=== PATIENT | male | born 1950 | race African-American/Black ===

== ENCOUNTER 2019-02-01 11:23 | Inpatient (IN) ==
[2019-02-01] MEDS ORDERED: ALUM/MAG/SIMETH/LIDO VISC 1:1 30 ML BOTTLE PO STA (11:55)
[2019-02-01] MEDS ORDERED: PANTOPRAZOLE 40 MG VIAL IV STA ×2 (11:55→14:19)
[2019-02-01] MEDS ORDERED: SODIUM CHLORIDE 0.9% 1,000 ML IV STA (11:55)
[2019-02-01] MEDS ORDERED: ONDANSETRON 4 MG/2 ML VIAL IV STA (11:55)
[2019-02-01 12:59] LABS: Apearance,Urine CLEAR (Clear); Bacteria,Urine Occasional /HPF (Few); Bilirubin,Urine Negative (Negative); Blood, Urine Negative (Negative); Glucose,Urine (UA) >=500 mg/dL (Negative); Hyaline Casts,Urine 12 /LPF (0-3); Ketones,Urine Negative (Negative); Mucus,Urine Many /LPF (Occasional); Nitrite,Urine Negative (Negative); Protein,Urine >=500 MG/DL; RBC,Urine 2 /HPF (0-4); Urine Color Amber (Yellow); Urine Specific Gravity 1.029 (1.001-1.035); WBC,Urine 2 /HPF (0-6)
[2019-02-01 13:00] LABS: Basophils % 0.4 % (0.0-0.8); Eosinophils # 0.1 10*3/uL (0.0-0.87); Eosinophils % 1.2 % (0.00-10.9); Hemoglobin 14.1 GM/DL (14.0-18.0); Immature Granulocytes % 0.4 %; Immature Granulocytes Absolute 0.04 #; Lymphocytes # 2.8 10*3/uL (1.4-4.0); Lymphocytes % 26.8 % (21.2-54.2); Mean Corpuscular Volume 82.1 FL (87-102); Mean Platelet Volume 9.6 FL (9.6-12.0); Monocytes % 6.7 % (1.7-12.7); Neutrophils % 64.5 % (38.7-73.9); Platelet Count 300 T/CUMM (130-400); Red Blood Count 5.36 MC/CUMM (3.8-5.5); Red Cell Distribution Width 14.1 % (9.3-17.3); White Blood Count 10.3 T/CUMM (4-12)
[2019-02-01 13:14] LABS: Albumin 3.8 G/DL (3.4-5.0); Bilirubin,Total 0.8 MG/DL (0.2-1.0); Calcium 8.9 MG/DL (8.5-10.1); Total Protein 7.4 G/DL (6.4-8.3)
[2019-02-01] MEDS ORDERED: POTASSIUM CHLORIDE 20 MEQ TABLET PO STA (14:25)
[2019-02-01] MEDS ORDERED: DEXTROSE 50% 25 GM/50 ML VIAL IV PRN (16:02)
[2019-02-01] MEDS ORDERED: ACETAMINOPHEN 325 MG TABLET PO PRN (16:02)
[2019-02-01] MEDS ORDERED: GLUCAGON 1 MG VIAL IM PRN (16:02)
[2019-02-01] MEDS ORDERED: ONDANSETRON 4 MG/2 ML VIAL IV PRN (16:02)
[2019-02-01] MEDS ORDERED: BISACODYL 10 MG SUPP RECTAL ONE (16:19)
[2019-02-01] MEDS ORDERED: SODIUM PHOSPHATE ENEMA 133 ML BOTTLE RECTAL PRN (16:22)
[2019-02-01] MEDS: SODIUM CHLORIDE 0.9% 1,000 ML IV SCH (16:33)
[2019-02-01] MEDS: INSULIN LISPRO 100 UNIT/ML SUBCUT SCH ×2 (16:39→20:48)
[2019-02-01] MEDS: POTASSIUM CHLORIDE 20 MEQ TABLET PO SCH ×2 (17:17→20:47)
[2019-02-01] MEDS: metFORMIN 500 MG TABLET PO SCH (17:17)
[2019-02-01] MEDS: DOCUSATE SODIUM 100 MG CAPSULE PO SCH (20:47)
[2019-02-01] MEDS: INSULIN GLARGINE 100 UNIT/ML SUBCUT SCH (20:48)
[2019-02-02] MEDS: SODIUM CHLORIDE 0.9% 1,000 ML IV SCH ×4 (00:28→23:45)
[2019-02-02 07:26] LABS: Calcium 8.1 MG/DL (8.5-10.1); Osmolality,Calculated 278.1 MOS/KG (273-304); Thyroid Stimulating Hormone 0.379 uIU/ml (0.358-3.74)
[2019-02-02] MEDS: INSULIN LISPRO 100 UNIT/ML SUBCUT SCH ×5 (08:44→22:14)
[2019-02-02] MEDS: metFORMIN 500 MG TABLET PO SCH ×2 (08:45→16:32)
[2019-02-02] MEDS: PANTOPRAZOLE 40 MG TABLET PO SCH (08:45)
[2019-02-02] MEDS: ASPIRIN EC 81 MG TABLET PO SCH (08:46)
[2019-02-02] MEDS: PYRIDOXINE 100 MG TABLET PO SCH (08:46)
[2019-02-02] MEDS: amLODIPine 5 MG TABLET PO SCH (08:46)
[2019-02-02] MEDS: POTASSIUM CHLORIDE 20 MEQ TABLET PO SCH ×4 (08:47→22:07)
[2019-02-02] MEDS: DOCUSATE SODIUM 100 MG CAPSULE PO SCH ×2 (08:47→22:08)
[2019-02-02] MEDS ORDERED: ROSUVASTATIN 10 MG TABLET PO SCH (21:00)
[2019-02-02] MEDS ORDERED: traMADol 50 MG TABLET PO PRN (21:06)
[2019-02-02] MEDS: INSULIN GLARGINE 100 UNIT/ML SUBCUT SCH (22:06)
[2019-02-02] MEDS: METOPROLOL TARTRATE 25 MG TABLET PO SCH (22:07)
[2019-02-02] MEDS ORDERED: LIDOCAINE 5% PATCH TRANSDERM SCH (23:00)
[2019-02-03 03:59] LABS: Risk Ratio 2.08; VLDL CHOLESTEROL 11.6 MG/DL
[2019-02-03] MEDS: INSULIN LISPRO 100 UNIT/ML SUBCUT SCH ×3 (07:51→17:30)
[2019-02-03] MEDS: POTASSIUM CHLORIDE 20 MEQ TABLET PO SCH ×3 (09:12→18:02)
[2019-02-03] MEDS: DOCUSATE SODIUM 100 MG CAPSULE PO SCH (09:12)
[2019-02-03] MEDS: METOPROLOL TARTRATE 25 MG TABLET PO SCH (09:12)
[2019-02-03] MEDS: PYRIDOXINE 100 MG TABLET PO SCH (09:12)
[2019-02-03] MEDS: ASPIRIN EC 81 MG TABLET PO SCH (09:12)
[2019-02-03] MEDS: metFORMIN 500 MG TABLET PO SCH (09:13)
[2019-02-03] MEDS: PANTOPRAZOLE 40 MG TABLET PO SCH (09:13)
[2019-02-03] MEDS: amLODIPine 5 MG TABLET PO SCH (09:13)
[2019-02-03] MEDS ORDERED: INSULIN GLARGINE 100 UNIT/ML SUBCUT SCH (13:50)
[2019-02-03] MEDS ORDERED: amLODIPine 5 MG TABLET PO SCH (13:51)
[2019-02-03 15:50] VITALS: BP 153/78
[2019-02-03] MEDS ORDERED: metFORMIN 500 MG TABLET PO SCH (17:00)
[2019-02-03] MEDS ORDERED: sitaGLIPtin 25 MG TABLET PO SCH (21:00)
== END 2019-02-03 18:31 | disposition home health service (06) | DRG 201 ==
LOC: EDUNIT# → EDBD → N.EDINP 11:23 → N.ED 11:23 → N.TELES 14:58
PROVIDERS: ADMIT Family Medicine; ATTEND Family Medicine

== ENCOUNTER 2020-07-23 10:09 | Inpatient (IN) ==
[2020-07-23] MEDS ORDERED: SODIUM CHLORIDE 0.9% 1,000 ML IV STA (10:31)
[2020-07-23 11:03] LABS: Amorphous Crystals,Urine Occasional /HPF (Few); Bacteria,Urine Occasional /HPF (Few); Bilirubin,Urine Negative (Negative); Blood, Urine Large mg/dL (Negative); Glucose,Urine (UA) >=500 mg/dL (Negative); Hyaline Casts,Urine 19 /LPF (0-3); Ketones,Urine 20 mg/dL (Negative); Mucus,Urine Few /LPF (Occasional); Nitrite,Urine Negative (Negative); Protein,Urine 100 MG/DL; RBC,Urine 39 /HPF (0-4); Urine Appearance CLOUDY (Clear); Urine Color Yellow (Yellow); Urine Specific Gravity 1.018 (1.001-1.035); Urine Urobilinogen < 2.0 EU/DL (0.2-1.0); WBC,Urine 4 /HPF (0-6)
[2020-07-23 11:05] LABS: Basophils # 0.1 10*3/uL (0.0-0.2); Basophils % 0.3 % (0.0-0.8); Hematocrit 38.7 VOL% (42.0-52.0); Hemoglobin 12.2 GM/DL (14.0-18.0); Immature Granulocytes % 4.8 %; Immature Granulocytes Absolute 1.15 #; Lymphocytes # 2.3 10*3/uL (1.4-4.0); Lymphocytes % 9.7 % (21.2-54.2); Mean Corpuscular HGB Conc 31.5 GM/DL (32-36); Mean Corpuscular Volume 85.6 FL (87-102); Mean Platelet Volume 10.3 FL (9.6-12.0); Monocytes % 7.7 % (1.7-12.7); Neutrophils % 77.5 % (38.7-73.9); Platelet Count 297 T/CUMM (130-400); Red Blood Count 4.52 MC/CUMM (3.8-5.5); Red Cell Distribution Width 14.8 % (9.3-17.3); White Blood Count 23.7 T/CUMM (4-12)
[2020-07-23 11:25] LABS: INR 1.1; PT Patient Result 11.4 SECS (9.8-11.9)
[2020-07-23 11:27] LABS: Albumin 3.3 G/DL (3.4-5.0); Bilirubin,Total 0.4 MG/DL (0.2-1.0); Calcium 8.9 MG/DL (8.5-10.1); Osmolality,Calculated 331.7 MOS/KG (273-304); Total Protein 5.8 G/DL (6.4-8.3)
[2020-07-23 11:46] LABS: Band Neutrophils 1 % (0-10); Hypochromasia 1+; Lymphocytes 10 % (20-55); Microcytosis Slight; Segmented Neutrophils 85 % (50-85); Total Cells Counted 100
[2020-07-23 11:47] LABS: Acanthocytes Few; Ovalocytes Slight; Platelet Estimate Normal
[2020-07-23] MEDS ORDERED: INSULIN REGULAR 100 UNIT/ML IV STA (12:02)
[2020-07-23] MEDS ORDERED: MAGNESIUM SULF RIDER 4 GM in PREMIX 1 EACH IV PRN (13:47)
[2020-07-23] MEDS ORDERED: DEXTROSE 50% 25 GM/50 ML VIAL IV PRN ×2 (13:47)
[2020-07-23] MEDS ORDERED: MAGNESIUM SULF RIDER 2 GM in PREMIX 1 EACH IV PRN (13:47)
[2020-07-23] MEDS ORDERED: SODIUM PHOSPHATE INJ 12.5 MMOL in SODIUM CHLORIDE 0.9% 250 ML IV PRN (13:47)
[2020-07-23] MEDS ORDERED: SODIUM BICARB INJ 100 MEQ in STERILE WATER INJ 400 ML IV PRN (13:47)
[2020-07-23] MEDS ORDERED: SODIUM CHLORIDE 0.9% 1,000 ML IV ONE (13:47)
[2020-07-23] MEDS ORDERED: NICOTINE 14 MG/24 HR PATCH TRANSDERM PRN (13:51)
[2020-07-23] MEDS ORDERED: INSULIN REGULAR DRIP 100 ML IV SCH (14:00)
[2020-07-23] MEDS ORDERED: ENOXAPARIN 30 MG/0.3 ML SYRINGE SUBCUT SCH (14:00)
[2020-07-23] MEDS: SODIUM CHLORIDE 0.9% 1,000 ML IV SCH ×5 (14:55→20:53)
[2020-07-23 15:40] LABS: ABG Base Excess -18.1 MMOL/L (-2.5-2.5); ABG HCO3 11.3 MMOL/L (20-26); ABG PCO2 22.4 MM HG (35-48); Allen Test Positive; Pt O2 Delivery Device Room Air
[2020-07-23 15:42] LABS: ABG PH 7.204 (7.35-7.45)
[2020-07-23 15:43] LABS: Calcium 9.2 MG/DL (8.5-10.1); Osmolality,Calculated 327.3 MOS/KG (273-304)
[2020-07-23 18:13] LABS: Osmolality,Calculated 322.7 MOS/KG (273-304)
[2020-07-23] MEDS: METOPROLOL TARTRATE 25 MG TABLET PO SCH (20:25)
[2020-07-23 22:47] LABS: Calcium 8.6 MG/DL (8.5-10.1); Osmolality,Calculated 315.3 MOS/KG (273-304)
[2020-07-24] MEDS: SODIUM CHLORIDE 0.9% 1,000 ML IV SCH ×2 (01:09→09:06)
[2020-07-24 02:30] LABS: Basophils % 0.2 % (0.0-0.8); Hemoglobin 12.8 GM/DL (14.0-18.0); Immature Granulocytes Absolute 0.18 #; Lymphocytes # 1.1 10*3/uL (1.4-4.0); Lymphocytes % 6.1 % (21.2-54.2); Mean Corpuscular HGB Conc 33.7 GM/DL (32-36); Mean Corpuscular Volume 79.5 FL (87-102); Mean Platelet Volume 9.8 FL (9.6-12.0); Monocytes % 2.2 % (1.7-12.7); Neutrophils % 90.5 % (38.7-73.9); Platelet Count 264 T/CUMM (130-400); Red Blood Count 4.78 MC/CUMM (3.8-5.5); Red Cell Distribution Width 14.8 % (9.3-17.3); White Blood Count 18.8 T/CUMM (4-12)
[2020-07-24 02:44] LABS: Risk Ratio 2.66; VLDL CHOLESTEROL 10.4 MG/DL
[2020-07-24 02:52] LABS: Calcium 8.5 MG/DL (8.5-10.1)
[2020-07-24] MEDS ORDERED: SODIUM CHLOR 0.45% KCL 20 MEQ 20 MEQ/1,000 ML BAG IV SCH (03:00)
[2020-07-24] MEDS: POTASSIUM CHLORIDE RIDER 10 MEQ in PREMIX 1 EACH IV PRN ×4 (03:05→08:52)
[2020-07-24] MEDS: DEXT 5% NACL 0.45% KCL 20 MEQ 20 MEQ/1,000 ML BAG IV SCH ×2 (03:16→09:03)
[2020-07-24 06:35] LABS: Calcium 8.4 MG/DL (8.5-10.1); Osmolality,Calculated 305.1 MOS/KG (273-304)
[2020-07-24] MEDS ORDERED: SODIUM CHLORIDE 0.45% 1,000 ML IV SCH (06:47)
[2020-07-24] MEDS ORDERED: DEXTROSE 50% 25 GM/50 ML VIAL IV PRN ×2 (08:44→08:46)
[2020-07-24] MEDS ORDERED: GLUCAGON 1 MG VIAL IM PRN ×2 (08:44→08:46)
[2020-07-24] MEDS: ASPIRIN EC 81 MG TABLET PO SCH (08:51)
[2020-07-24] MEDS: METOPROLOL TARTRATE 25 MG TABLET PO SCH ×2 (08:51→20:59)
[2020-07-24] MEDS: INSULIN GLARGINE 100 UNIT/ML SUBCUT SCH (09:34)
[2020-07-24] MEDS: INSULIN LISPRO 100 UNIT/ML SUBCUT SCH ×3 (12:00→21:03)
[2020-07-24] MEDS: ENOXAPARIN 40 MG/0.4 ML SYRINGE SUBCUT SCH (13:34)
[2020-07-25] MEDS: SODIUM CHLORIDE 0.9% 1,000 ML IV SCH ×4 (03:34→21:33)
[2020-07-25 04:28] LABS: Basophils % 0.2 % (0.0-0.8); Eosinophils % 0.1 % (0.00-10.9); Hemoglobin 12.3 GM/DL (14.0-18.0); Immature Granulocytes % 0.9 %; Immature Granulocytes Absolute 0.15 #; Lymphocytes # 1.5 10*3/uL (1.4-4.0); Lymphocytes % 9.7 % (21.2-54.2); Mean Corpuscular HGB Conc 33.2 GM/DL (32-36); Mean Corpuscular Volume 79.9 FL (87-102); Mean Platelet Volume 10.6 FL (9.6-12.0); Monocytes % 6.8 % (1.7-12.7); Neutrophils % 82.3 % (38.7-73.9); Platelet Count 254 T/CUMM (130-400); Red Blood Count 4.63 MC/CUMM (3.8-5.5); Red Cell Distribution Width 15.4 % (9.3-17.3)
[2020-07-25 04:54] LABS: Calcium 8.6 MG/DL (8.5-10.1); Osmolality,Calculated 292.6 MOS/KG (273-304)
[2020-07-25 04:55] LABS: Eosinophils 1 % (0-10); Lymphocytes 9 % (20-55); Platelet Estimate Adequate; Segmented Neutrophils 87 % (50-85); Total Cells Counted 100
[2020-07-25 04:56] LABS: Hypochromasia Slight; Microcytosis Slight; Ovalocytes Slight
[2020-07-25] MEDS: ASPIRIN EC 81 MG TABLET PO SCH (08:26)
[2020-07-25] MEDS: METOPROLOL TARTRATE 25 MG TABLET PO SCH ×2 (08:26→21:28)
[2020-07-25] MEDS: INSULIN LISPRO 100 UNIT/ML SUBCUT SCH ×4 (08:27→21:27)
[2020-07-25] MEDS: INSULIN GLARGINE 100 UNIT/ML SUBCUT SCH (08:27)
[2020-07-25] MEDS: ENOXAPARIN 40 MG/0.4 ML SYRINGE SUBCUT SCH (15:04)
[2020-07-25] MEDS ORDERED: hydrALAZINE 20 MG/1 ML VIAL IV PRN (16:35)
[2020-07-26 05:27] LABS: Basophils % 0.1 % (0.0-0.8); Eosinophils % 0.2 % (0.00-10.9); Hematocrit 37.8 VOL% (42.0-52.0); Hemoglobin 12.8 GM/DL (14.0-18.0); Immature Granulocytes % 0.4 %; Immature Granulocytes Absolute 0.04 #; Lymphocytes # 2.1 10*3/uL (1.4-4.0); Lymphocytes % 19.3 % (21.2-54.2); Mean Corpuscular HGB Conc 33.9 GM/DL (32-36); Mean Corpuscular Volume 78.4 FL (87-102); Mean Platelet Volume 9.1 FL (9.6-12.0); Monocytes % 6.6 % (1.7-12.7); Neutrophils % 73.4 % (38.7-73.9); Platelet Count 210 T/CUMM (130-400); Red Blood Count 4.82 MC/CUMM (3.8-5.5)
[2020-07-26] MEDS: METOPROLOL TARTRATE 25 MG TABLET PO SCH ×2 (09:21→20:20)
[2020-07-26] MEDS: ASPIRIN EC 81 MG TABLET PO SCH (09:21)
[2020-07-26] MEDS: INSULIN GLARGINE 100 UNIT/ML SUBCUT SCH (09:21)
[2020-07-26] MEDS: POTASSIUM CHLORIDE RIDER 10 MEQ in PREMIX 1 EACH IV PRN ×2 (09:24→11:48)
[2020-07-26] MEDS: INSULIN LISPRO 100 UNIT/ML SUBCUT SCH ×4 (10:25→20:20)
[2020-07-26] MEDS ORDERED: POTASSIUM CHLORIDE 20 MEQ TABLET PO ONE (11:00)
[2020-07-26] MEDS: NYSTATIN 500,000 UNIT/5 ML UDCUP SWISH/SWAL SCH ×3 (13:09→20:20)
[2020-07-26] MEDS: ENOXAPARIN 40 MG/0.4 ML SYRINGE SUBCUT SCH (15:31)
[2020-07-26] MEDS: SODIUM CHLORIDE 0.9% 1,000 ML IV SCH ×2 (15:55→22:31)
[2020-07-26] MEDS: ROSUVASTATIN 20 MG TABLET PO SCH (20:20)
[2020-07-26] MEDS ORDERED: ONDANSETRON 4 MG/2 ML VIAL IV PRN (22:24)
[2020-07-27 05:54] LABS: Basophils % 0.2 % (0.0-0.8); Eosinophils # 0.1 10*3/uL (0.0-0.87); Eosinophils % 0.7 % (0.00-10.9); Hematocrit 40.6 VOL% (42.0-52.0); Hemoglobin 13.6 GM/DL (14.0-18.0); Immature Granulocytes % 0.2 %; Immature Granulocytes Absolute 0.02 #; Lymphocytes # 2.7 10*3/uL (1.4-4.0); Lymphocytes % 29.5 % (21.2-54.2); Mean Corpuscular HGB Conc 33.5 GM/DL (32-36); Mean Corpuscular Volume 79.6 FL (87-102); Mean Platelet Volume 9.9 FL (9.6-12.0); Monocytes % 6.9 % (1.7-12.7); Neutrophils % 62.5 % (38.7-73.9); Platelet Count 254 T/CUMM (130-400); Red Cell Distribution Width 14.6 % (9.3-17.3)
[2020-07-27 06:08] LABS: Calcium 8.2 MG/DL (8.5-10.1); Osmolality,Calculated 278.1 MOS/KG (273-304)
[2020-07-27] MEDS: POTASSIUM CHLORIDE RIDER 10 MEQ in PREMIX 1 EACH IV PRN ×5 (06:44→17:48)
[2020-07-27] MEDS: ASPIRIN EC 81 MG TABLET PO SCH (08:45)
[2020-07-27] MEDS: METOPROLOL TARTRATE 25 MG TABLET PO SCH ×2 (08:46→20:39)
[2020-07-27] MEDS: INSULIN LISPRO 100 UNIT/ML SUBCUT SCH ×4 (08:46→20:40)
[2020-07-27] MEDS: NYSTATIN 500,000 UNIT/5 ML UDCUP SWISH/SWAL SCH ×4 (08:46→20:39)
[2020-07-27] MEDS: INSULIN GLARGINE 100 UNIT/ML SUBCUT SCH (08:47)
[2020-07-27] MEDS: ENOXAPARIN 40 MG/0.4 ML SYRINGE SUBCUT SCH (13:04)
[2020-07-27] MEDS ORDERED: TUBERCULIN SKIN TEST 0.1 ML SYRINGE INTRADERM ONE (15:22)
[2020-07-27] MEDS: SODIUM CHLORIDE 0.9% 1,000 ML IV SCH (17:47)
[2020-07-27] MEDS: ROSUVASTATIN 20 MG TABLET PO SCH (20:39)
[2020-07-27] MEDS ORDERED: POTASSIUM CHLORIDE RIDER 20 MEQ in PREMIX 1 EACH IV PRN (22:03)
[2020-07-28 06:05] LABS: Basophils % 0.4 % (0.0-0.8); Eosinophils # 0.1 10*3/uL (0.0-0.87); Eosinophils % 1.3 % (0.00-10.9); Hematocrit 37.8 VOL% (42.0-52.0); Hemoglobin 12.5 GM/DL (14.0-18.0); Immature Granulocytes % 0.2 %; Immature Granulocytes Absolute 0.02 #; Lymphocytes # 3.4 10*3/uL (1.4-4.0); Lymphocytes % 40.4 % (21.2-54.2); Mean Corpuscular HGB Conc 33.1 GM/DL (32-36); Mean Corpuscular Volume 80.4 FL (87-102); Mean Platelet Volume 9.7 FL (9.6-12.0); Neutrophils % 50.7 % (38.7-73.9); Platelet Count 226 T/CUMM (130-400); Red Cell Distribution Width 14.3 % (9.3-17.3); White Blood Count 8.4 T/CUMM (4-12)
[2020-07-28 06:19] LABS: Osmolality,Calculated 275.5 MOS/KG (273-304)
[2020-07-28] MEDS: INSULIN LISPRO 100 UNIT/ML SUBCUT SCH ×4 (08:03→20:54)
[2020-07-28 08:49] LABS: Band Neutrophils 1 % (0-10); Eosinophils 2 % (0-10); Lymphocytes 35 % (20-55); Metamyelocytes 1 %; Platelet Estimate Normal; Segmented Neutrophils 54 % (50-85); Total Cells Counted 100
[2020-07-28 08:50] LABS: Hypochromasia 2+
[2020-07-28] MEDS: NYSTATIN 500,000 UNIT/5 ML UDCUP SWISH/SWAL SCH ×4 (09:17→20:54)
[2020-07-28] MEDS: INSULIN GLARGINE 100 UNIT/ML SUBCUT SCH (09:17)
[2020-07-28] MEDS: ASPIRIN EC 81 MG TABLET PO SCH (09:17)
[2020-07-28] MEDS: METOPROLOL TARTRATE 25 MG TABLET PO SCH ×2 (09:17→20:55)
[2020-07-28] MEDS: SODIUM CHLORIDE 0.9% 1,000 ML IV SCH (13:56)
[2020-07-28] MEDS: ENOXAPARIN 40 MG/0.4 ML SYRINGE SUBCUT SCH (13:56)
[2020-07-28] MEDS ORDERED: ALUMINUM/MAGNES/SIMETH MAX STR 30 ML UDCUP PO PRN (14:09)
[2020-07-28] MEDS: BISACODYL 5 MG TABLET PO PRN (14:18)
[2020-07-28] MEDS: traMADol 50 MG TABLET PO PRN (20:53)
[2020-07-28] MEDS: ROSUVASTATIN 20 MG TABLET PO SCH (20:55)
[2020-07-29 06:35] LABS: Basophils % 0.4 % (0.0-0.8); Eosinophils # 0.1 10*3/uL (0.0-0.87); Eosinophils % 1.2 % (0.00-10.9); Hematocrit 35.5 VOL% (42.0-52.0); Hemoglobin 11.7 GM/DL (14.0-18.0); Immature Granulocytes % 0.4 %; Immature Granulocytes Absolute 0.03 #; Lymphocytes # 2.8 10*3/uL (1.4-4.0); Lymphocytes % 42.3 % (21.2-54.2); Mean Corpuscular Volume 81.4 FL (87-102); Mean Platelet Volume 10.6 FL (9.6-12.0); Monocytes % 7.9 % (1.7-12.7); Neutrophils % 47.8 % (38.7-73.9); Platelet Count 257 T/CUMM (130-400); Red Blood Count 4.36 MC/CUMM (3.8-5.5); Red Cell Distribution Width 14.2 % (9.3-17.3); White Blood Count 6.7 T/CUMM (4-12)
[2020-07-29 06:48] LABS: Calcium 7.8 MG/DL (8.5-10.1); Osmolality,Calculated 277.3 MOS/KG (273-304)
[2020-07-29 06:59] LABS: Anisocytosis 2+; Band Neutrophils 2 % (0-10); Lymphocytes 42 % (20-55); Platelet Estimate Normal; Segmented Neutrophils 50 % (50-85); Total Cells Counted 100
[2020-07-29 07:03] LABS: Reactive Lymphocytes Few
[2020-07-29] MEDS: INSULIN LISPRO 100 UNIT/ML SUBCUT SCH ×4 (08:51→20:43)
[2020-07-29] MEDS: METOPROLOL TARTRATE 25 MG TABLET PO SCH ×2 (09:27→20:44)
[2020-07-29] MEDS: NYSTATIN 500,000 UNIT/5 ML UDCUP SWISH/SWAL SCH ×4 (09:27→20:44)
[2020-07-29] MEDS: ASPIRIN EC 81 MG TABLET PO SCH (09:27)
[2020-07-29] MEDS: INSULIN GLARGINE 100 UNIT/ML SUBCUT SCH (09:27)
[2020-07-29] MEDS: SODIUM CHLORIDE 0.9% 1,000 ML IV SCH (09:56)
[2020-07-29] MEDS: traMADol 50 MG TABLET PO PRN ×2 (13:22→20:46)
[2020-07-29] MEDS: BISACODYL 5 MG TABLET PO PRN (13:22)
[2020-07-29] MEDS: ENOXAPARIN 40 MG/0.4 ML SYRINGE SUBCUT SCH (13:23)
[2020-07-29] MEDS ORDERED: MAGNESIUM HYDROXIDE SUSP 30 ML UDCUP PO PRN (13:45)
[2020-07-29] MEDS: LINACLOTIDE 145 MCG CAPSULE PO SCH (14:35)
[2020-07-29] MEDS: ROSUVASTATIN 20 MG TABLET PO SCH (20:44)
[2020-07-30] MEDS: SODIUM CHLORIDE 0.9% 1,000 ML IV SCH (05:30)
[2020-07-30 05:44] LABS: Basophils % 0.1 % (0.0-0.8); Eosinophils # 0.1 10*3/uL (0.0-0.87); Eosinophils % 1.2 % (0.00-10.9); Hematocrit 33.9 VOL% (42.0-52.0); Hemoglobin 11.1 GM/DL (14.0-18.0); Immature Granulocytes % 0.3 %; Immature Granulocytes Absolute 0.02 #; Lymphocytes # 2.4 10*3/uL (1.4-4.0); Lymphocytes % 36.4 % (21.2-54.2); Mean Corpuscular HGB Conc 32.7 GM/DL (32-36); Mean Corpuscular Volume 82.3 FL (87-102); Mean Platelet Volume 10.1 FL (9.6-12.0); Monocytes % 10.1 % (1.7-12.7); Neutrophils % 51.9 % (38.7-73.9); Platelet Count 267 T/CUMM (130-400); Red Blood Count 4.12 MC/CUMM (3.8-5.5); Red Cell Distribution Width 14.3 % (9.3-17.3); White Blood Count 6.7 T/CUMM (4-12)
[2020-07-30 06:03] LABS: Calcium 7.8 MG/DL (8.5-10.1); Osmolality,Calculated 277.4 MOS/KG (273-304)
[2020-07-30 08:13] LABS: Eosinophils 2 % (0-10); Hypochromasia 3+; Lymphocytes 35 % (20-55); Platelet Estimate Normal; Polychromasia Slight; Segmented Neutrophils 54 % (50-85); Total Cells Counted 100
[2020-07-30] MEDS: INSULIN LISPRO 100 UNIT/ML SUBCUT SCH ×4 (08:22→19:44)
[2020-07-30] MEDS: NYSTATIN 500,000 UNIT/5 ML UDCUP SWISH/SWAL SCH ×4 (09:26→20:33)
[2020-07-30] MEDS: POTASSIUM CHLORIDE 10 MEQ TABLET PO SCH (09:26)
[2020-07-30] MEDS: ASPIRIN EC 81 MG TABLET PO SCH (09:27)
[2020-07-30] MEDS: METOPROLOL TARTRATE 25 MG TABLET PO SCH ×2 (09:27→20:33)
[2020-07-30] MEDS: LINACLOTIDE 145 MCG CAPSULE PO SCH (09:27)
[2020-07-30] MEDS: INSULIN GLARGINE 100 UNIT/ML SUBCUT SCH (09:28)
[2020-07-30] MEDS: ENOXAPARIN 40 MG/0.4 ML SYRINGE SUBCUT SCH (13:02)
[2020-07-30] MEDS: traMADol 50 MG TABLET PO PRN (17:26)
[2020-07-30] MEDS: ROSUVASTATIN 20 MG TABLET PO SCH (20:33)
[2020-07-31] MEDS: SODIUM CHLORIDE 0.9% 1,000 ML IV SCH ×2 (01:19→02:17)
[2020-07-31 06:52] LABS: Basophils % 0.2 % (0.0-0.8); Eosinophils # 0.2 10*3/uL (0.0-0.87); Eosinophils % 3.5 % (0.00-10.9); Hematocrit 33.1 VOL% (42.0-52.0); Hemoglobin 10.5 GM/DL (14.0-18.0); Immature Granulocytes % 0.6 %; Immature Granulocytes Absolute 0.04 #; Lymphocytes # 2.9 10*3/uL (1.4-4.0); Mean Corpuscular HGB Conc 31.7 GM/DL (32-36); Mean Corpuscular Volume 84.7 FL (87-102); Mean Platelet Volume 9.9 FL (9.6-12.0); Monocytes % 13.2 % (1.7-12.7); Neutrophils % 37.5 % (38.7-73.9); Platelet Count 302 T/CUMM (130-400); Red Blood Count 3.91 MC/CUMM (3.8-5.5); Red Cell Distribution Width 14.6 % (9.3-17.3); White Blood Count 6.4 T/CUMM (4-12)
[2020-07-31 07:17] LABS: Osmolality,Calculated 277.4 MOS/KG (273-304)
[2020-07-31] MEDS: INSULIN LISPRO 100 UNIT/ML SUBCUT SCH ×2 (07:40→12:46)
[2020-07-31 07:59] LABS: Atypical Lymphocytes Few; Eosinophils 5 % (0-10); Lymphocytes 50 % (20-55); Platelet Estimate Normal; Polychromasia Slight; Reactive Lymphocytes Few; Segmented Neutrophils 38 % (50-85); Total Cells Counted 100
[2020-07-31 08:00] LABS: Hypochromasia 3+; Microcytosis 1+
[2020-07-31] MEDS: LINACLOTIDE 145 MCG CAPSULE PO SCH (08:29)
[2020-07-31] MEDS: METOPROLOL TARTRATE 25 MG TABLET PO SCH (08:29)
[2020-07-31] MEDS: INSULIN GLARGINE 100 UNIT/ML SUBCUT SCH (08:29)
[2020-07-31] MEDS: ASPIRIN EC 81 MG TABLET PO SCH (08:30)
[2020-07-31] MEDS: POTASSIUM CHLORIDE 10 MEQ TABLET PO SCH (08:30)
[2020-07-31] MEDS: NYSTATIN 500,000 UNIT/5 ML UDCUP SWISH/SWAL SCH ×2 (08:30→12:47)
[2020-07-31 11:58] VITALS: BP 129/69
== END 2020-07-31 13:30 | DRG 638 ==
LOC: EDUNIT# → EDBD → N.ED 10:09 → N.EDINP 13:47 → SUATTDRO 13:47 → N.ICU 14:38 → N.5E 07-24 16:21
PROVIDERS: ADMIT Internal Medicine; ATTEND Family Medicine

== ENCOUNTER 2020-11-27 17:04 | Observation (INO) ==
[2020-11-27] MEDS ORDERED: SODIUM CHLORIDE 0.9% 1,000 ML IV STA ×2 (17:34→21:05)
[2020-11-27 17:55] LABS: Basophils % 0.2 % (0.0-0.8); Eosinophils % 0.5 % (0.00-10.9); Hematocrit 37.9 VOL% (42.0-52.0); Hemoglobin 12.1 GM/DL (14.0-18.0); Immature Granulocytes % 0.2 %; Immature Granulocytes Absolute 0.02 #; Lymphocytes # 1.2 10*3/uL (1.4-4.0); Lymphocytes % 14.9 % (21.2-54.2); Mean Corpuscular HGB Conc 31.9 GM/DL (32-36); Mean Corpuscular Volume 83.5 FL (87-102); Mean Platelet Volume 10.6 FL (9.6-12.0); Monocytes % 4.6 % (1.7-12.7); Neutrophils % 79.6 % (38.7-73.9); Platelet Count 253 T/CUMM (130-400); Red Blood Count 4.54 MC/CUMM (3.8-5.5); Red Cell Distribution Width 13.7 % (9.3-17.3); White Blood Count 8.1 T/CUMM (4-12)
[2020-11-27 17:56] LABS: Bilirubin,Urine Negative (Negative); Blood, Urine Negative (Negative); Glucose,Urine (UA) >=500 mg/dL (Negative); Ketones,Urine Negative (Negative); Nitrite,Urine Negative (Negative); Protein,Urine Negative; RBC,Urine 1 /HPF (0-4); Urine Appearance CLEAR (Clear); Urine Color Straw (Yellow); Urine Specific Gravity 1.024 (1.001-1.035); Urine Urobilinogen < 2.0 EU/DL (0.2-1.0); WBC,Urine 1 /HPF (0-6)
[2020-11-27 18:08] LABS: Alanine Aminotransferase 27 U/L (16-61); Albumin 3.6 G/DL (3.4-5.0); Alkaline Phosphatase 100 U/L (45-117); Aspartate Amino Transferase 12 U/L (0-37); Blood Urea Nitrogen 21 MG/DL (7-18); Calcium 8.9 MG/DL (8.5-10.1); Carbon Dioxide 27 MMOL/L (21-32); Estimated Glom Filtration Rate 54 ML/MIN; Osmolality,Calculated 303.9 MOS/KG (273-304); Potassium 5.2 MMOL/L (3.5-5.1); Sodium 129 MMOL/L (136-145); Total Protein 6.7 G/DL (6.4-8.2)
[2020-11-27 18:11] LABS: Glucose 880 MG/DL (74-106)
[2020-11-27] MEDS ORDERED: INSULIN REGULAR 100 UNIT/ML IV STA (18:12)
[2020-11-27 18:14] LABS: Thyroid Stimulating Hormone 0.418 uIU/ml (0.358-3.74); Troponin I 0.017 NG/ML (0.00-0.045)
[2020-11-27] MEDS ORDERED: ONDANSETRON 4 MG/2 ML VIAL IV PRN (22:35)
[2020-11-27] MEDS ORDERED: DEXTROSE 50% 25 GM/50 ML VIAL IV PRN (22:35)
[2020-11-27] MEDS ORDERED: ACETAMINOPHEN 325 MG TABLET PO PRN (22:35)
[2020-11-27] MEDS ORDERED: GLUCAGON 1 MG VIAL IM PRN (22:35)
[2020-11-27] MEDS: DOCUSATE SODIUM 100 MG CAPSULE PO SCH (23:42)
[2020-11-27] MEDS: INSULIN REGULAR 100 UNIT/ML SUBCUT SCH (23:53)
[2020-11-27] MEDS: SODIUM CHLORIDE 0.9% 1,000 ML IV SCH (23:53)
[2020-11-28] MEDS: INSULIN REGULAR 100 UNIT/ML SUBCUT SCH ×3 (06:08→17:29)
[2020-11-28 06:43] LABS: Calcium 8.2 MG/DL (8.5-10.1); Potassium 3.7 MMOL/L (3.5-5.1)
[2020-11-28] MEDS: DOCUSATE SODIUM 100 MG CAPSULE PO SCH ×2 (08:15→22:19)
[2020-11-28] MEDS: SODIUM CHLORIDE 0.9% 1,000 ML IV SCH ×4 (08:15→18:46)
[2020-11-28] MEDS ORDERED: PANTOPRAZOLE 40 MG TABLET PO SCH (09:00)
[2020-11-28] MEDS ORDERED: MELOXICAM 7.5 MG TABLET PO PRN (13:58)
[2020-11-28] MEDS ORDERED: NON-FORMULARY MEDICATION (Acetaminophen [Tylenol 8 Hour] 650 mg Tablet Extended Release) PO PRN (13:58)
[2020-11-28] MEDS ORDERED: ALBUTEROL 2.5 MG/3 ML NEB RESP TX PRN (14:04)
[2020-11-28] MEDS ORDERED: hydrALAZINE 20 MG/1 ML VIAL IV PRN (16:47)
[2020-11-28] MEDS ORDERED: INSULIN GLARGINE 100 UNIT/ML SUBCUT SCH (21:00)
[2020-11-28] MEDS: metFORMIN 500 MG TABLET PO SCH (22:18)
[2020-11-28] MEDS: ATORVASTATIN 40 MG TABLET PO SCH (22:18)
[2020-11-28] MEDS: METOPROLOL TARTRATE 25 MG TABLET PO SCH (22:18)
[2020-11-29] MEDS: INSULIN REGULAR 100 UNIT/ML SUBCUT SCH ×4 (00:15→17:11)
[2020-11-29 05:54] LABS: Bilirubin,Total 1.2 MG/DL (0.2-1.0); Calcium 8.8 MG/DL (8.5-10.1); Osmolality,Calculated 274.4 MOS/KG (273-304); Potassium 3.3 MMOL/L (3.5-5.1); Total Protein 5.9 G/DL (6.4-8.2)
[2020-11-29] MEDS: ASPIRIN 325 MG TABLET PO SCH (08:35)
[2020-11-29] MEDS: cilostazoL 100 MG TABLET PO SCH (08:36)
[2020-11-29] MEDS: METOPROLOL TARTRATE 25 MG TABLET PO SCH ×2 (08:36→22:33)
[2020-11-29] MEDS: POTASSIUM CHLORIDE 20 MEQ TABLET PO SCH (08:36)
[2020-11-29] MEDS: PANTOPRAZOLE 40 MG TABLET PO SCH (08:36)
[2020-11-29] MEDS: metFORMIN 500 MG TABLET PO SCH ×2 (08:36→22:32)
[2020-11-29] MEDS: DOCUSATE SODIUM 100 MG CAPSULE PO SCH ×2 (08:39→22:32)
[2020-11-29] MEDS: sitaGLIPtin 25 MG TABLET PO SCH (17:11)
[2020-11-29] MEDS ORDERED: INSULIN GLARGINE 100 UNIT/ML SUBCUT SCH (21:00)
[2020-11-29] MEDS: ATORVASTATIN 40 MG TABLET PO SCH (22:33)
[2020-11-30] MEDS: INSULIN REGULAR 100 UNIT/ML SUBCUT SCH ×3 (02:34→12:19)
[2020-11-30] MEDS: PANTOPRAZOLE 40 MG TABLET PO SCH (05:52)
[2020-11-30] MEDS: POTASSIUM CHLORIDE 20 MEQ TABLET PO SCH (09:48)
[2020-11-30] MEDS: sitaGLIPtin 25 MG TABLET PO SCH (09:48)
[2020-11-30] MEDS: ASPIRIN 325 MG TABLET PO SCH (09:48)
[2020-11-30] MEDS: cilostazoL 100 MG TABLET PO SCH (09:48)
[2020-11-30] MEDS: METOPROLOL TARTRATE 25 MG TABLET PO SCH (09:48)
[2020-11-30] MEDS: DOCUSATE SODIUM 100 MG CAPSULE PO SCH (09:48)
[2020-11-30] MEDS: metFORMIN 500 MG TABLET PO SCH (09:48)
[2020-11-30 16:04] VITALS: BP 134/74
== END 2020-11-30 17:25 | disposition home health service (06) ==
LOC: EDBD → EDUNIT# → N.ED 17:04 → INTOOBSV 20:41 → N.EDINP 20:41 → N.5E 22:34
PROVIDERS: ADMIT Family Medicine; ATTEND Family Medicine

== ENCOUNTER 2020-12-13 10:10 | Inpatient (IN) ==
[2020-12-13] MEDS ORDERED: ONDANSETRON 4 MG/2 ML VIAL IV STA (10:20)
[2020-12-13] MEDS ORDERED: INSULIN REGULAR 100 UNIT/ML IV STA ×2 (10:20→12:26)
[2020-12-13 10:30] LABS: Basophils % 0.5 % (0.0-0.8); Eosinophils % 0.1 % (0.00-10.9); Hematocrit 36.7 VOL% (42.0-52.0); Hemoglobin 11.8 GM/DL (14.0-18.0); Immature Granulocytes % 0.4 %; Immature Granulocytes Absolute 0.03 #; Lymphocytes # 0.9 10*3/uL (1.4-4.0); Lymphocytes % 10.2 % (21.2-54.2); Mean Corpuscular HGB Conc 32.2 GM/DL (32-36); Mean Corpuscular Volume 83.4 FL (87-102); Mean Platelet Volume 9.7 FL (9.6-12.0); Monocytes % 3.4 % (1.7-12.7); Neutrophils % 85.4 % (38.7-73.9); Platelet Count 330 T/CUMM (130-400); Red Cell Distribution Width 14.2 % (9.3-17.3); White Blood Count 8.4 T/CUMM (4-12)
[2020-12-13 10:48] LABS: Albumin 3.6 G/DL (3.4-5.0); Bilirubin,Total 0.4 MG/DL (0.2-1.0); Calcium 9.5 MG/DL (8.5-10.1); Potassium 5.2 MMOL/L (3.5-5.1); Total Protein 6.9 G/DL (6.4-8.2)
[2020-12-13] MEDS ORDERED: SODIUM CHLORIDE 0.9% 1,000 ML IV STA (10:56)
[2020-12-13 10:58] LABS: Bilirubin,Urine Negative (Negative); Blood, Urine Moderate mg/dL (Negative); Glucose,Urine (UA) >=500 mg/dL (Negative); Ketones,Urine 20 mg/dL (Negative); Mucus,Urine Occasional /LPF (Occasional); Nitrite,Urine Negative (Negative); Protein,Urine Negative; RBC,Urine 2 /HPF (0-4); Squamous Epithelial Cell,Urine Occasional /HPF (0-10); Urine Appearance CLEAR (Clear); Urine Color Straw (Yellow); Urine Specific Gravity 1.026 (1.001-1.035); Urine Urobilinogen < 2.0 EU/DL (0.2-1.0)
[2020-12-13] MEDS ORDERED: ONDANSETRON 4 MG/2 ML VIAL IV PRN (11:16)
[2020-12-13] MEDS: SODIUM CHLORIDE 0.45% 1,000 ML IV SCH ×2 (11:40→15:35)
[2020-12-13] MEDS ORDERED: DEXTROSE 50% 25 GM/50 ML VIAL IV PRN ×2 (13:51)
[2020-12-13] MEDS ORDERED: MAGNESIUM SULF RIDER 2 GM/50 ML PREMIX IV PRN (13:51)
[2020-12-13] MEDS ORDERED: MAGNESIUM SULF RIDER 4 GM/100 ML PREMIX IV PRN (13:51)
[2020-12-13] MEDS ORDERED: POTASSIUM CHLORIDE RIDER 10 MEQ in PREMIX 1 EACH IV PRN (13:51)
[2020-12-13 14:46] LABS: Calcium 8.8 MG/DL (8.5-10.1); Osmolality,Calculated 281.7 MOS/KG (273-304); Potassium 3.8 MMOL/L (3.5-5.1)
[2020-12-13 15:16] LABS: ABG Base Excess -8.1 MMOL/L (-2.5-2.5); ABG HCO3 17.9 MMOL/L (20-26); ABG Oxygen Saturation 95.7 % (95-100); ABG PCO2 36.3 MM HG (35-48); ABG PH 7.297 (7.35-7.45); ABG PO2 84.1 MM HG (80-95); ABG TCO2 16.1 MMOL/L (23-27)
[2020-12-13] MEDS: DEXTROSE 5% NACL 0.45% 1,000 ML IV SCH (15:35)
[2020-12-13 16:56] LABS: ABG Base Excess -8.9 MMOL/L (-2.5-2.5); ABG HCO3 17.2 MMOL/L (20-26); ABG Oxygen Saturation 96.5 % (95-100); ABG PCO2 34.2 MM HG (35-48); ABG PH 7.297 (7.35-7.45); ABG PO2 88.3 MM HG (80-95); ABG TCO2 15.2 MMOL/L (23-27); Pt O2 Delivery Device Room Air
[2020-12-13] MEDS: cefTRIAXone 1,000 MG in SODIUM CHLORIDE 0.9% 100 ML IV SCH (17:06)
[2020-12-13] MEDS ORDERED: ACETAMINOPHEN 325 MG TABLET PO PRN (18:28)
[2020-12-13 19:16] LABS: Calcium 8.8 MG/DL (8.5-10.1); Osmolality,Calculated 277.1 MOS/KG (273-304); Potassium 4.2 MMOL/L (3.5-5.1)
[2020-12-13 19:25] LABS: ABG Base Excess -10.2 MMOL/L (-2.5-2.5); ABG HCO3 16.3 MMOL/L (20-26); ABG Oxygen Saturation 97.9 % (95-100); ABG PCO2 32.1 MM HG (35-48); ABG TCO2 14.1 MMOL/L (23-27)
[2020-12-13] MEDS: DOCUSATE SODIUM 100 MG CAPSULE PO SCH (22:14)
[2020-12-13 22:20] LABS: Calcium 8.3 MG/DL (8.5-10.1); Osmolality,Calculated 280.1 MOS/KG (273-304); Potassium 4.5 MMOL/L (3.5-5.1)
[2020-12-13 23:56] LABS: ABG HCO3 15.1 MMOL/L (20-26); ABG Oxygen Saturation 98.2 % (95-100); ABG PCO2 27.9 MM HG (35-48); ABG PH 7.291 (7.35-7.45); ABG TCO2 12.3 MMOL/L (23-27)
[2020-12-14] MEDS: INSULIN LISPRO 100 UNIT/ML SUBCUT SCH ×8 (01:05→21:47)
[2020-12-14 02:31] LABS: Basophils % 0.3 % (0.0-0.8); Eosinophils # 0.1 10*3/uL (0.0-0.87); Eosinophils % 0.8 % (0.00-10.9); Hematocrit 34.2 VOL% (42.0-52.0); Hemoglobin 11.1 GM/DL (14.0-18.0); Immature Granulocytes % 0.3 %; Immature Granulocytes Absolute 0.03 #; Lymphocytes # 1.8 10*3/uL (1.4-4.0); Lymphocytes % 20.3 % (21.2-54.2); Mean Corpuscular HGB Conc 32.5 GM/DL (32-36); Mean Corpuscular Volume 82.8 FL (87-102); Mean Platelet Volume 9.7 FL (9.6-12.0); Monocytes % 4.7 % (1.7-12.7); Neutrophils % 73.6 % (38.7-73.9); Platelet Count 289 T/CUMM (130-400); Red Blood Count 4.13 MC/CUMM (3.8-5.5); Red Cell Distribution Width 14.1 % (9.3-17.3); White Blood Count 8.9 T/CUMM (4-12)
[2020-12-14 02:52] LABS: Calcium 8.1 MG/DL (8.5-10.1); Osmolality,Calculated 277.2 MOS/KG (273-304); Potassium 4.4 MMOL/L (3.5-5.1)
[2020-12-14] MEDS: DEXTROSE 5% NACL 0.45% 1,000 ML IV SCH (02:59)
[2020-12-14 06:43] LABS: Calcium 8.3 MG/DL (8.5-10.1); Osmolality,Calculated 278.8 MOS/KG (273-304); Potassium 3.8 MMOL/L (3.5-5.1)
[2020-12-14] MEDS: SODIUM CHLORIDE 0.45% 1,000 ML IV SCH ×3 (08:13→08:33)
[2020-12-14] MEDS: PANTOPRAZOLE 40 MG TABLET PO SCH (08:32)
[2020-12-14] MEDS: DOCUSATE SODIUM 100 MG CAPSULE PO SCH ×2 (08:32→21:46)
[2020-12-14] MEDS: INSULIN GLARGINE 100 UNIT/ML SUBCUT SCH (09:15)
[2020-12-14 10:20] LABS: Calcium 8.8 MG/DL (8.5-10.1); Potassium 5.1 MMOL/L (3.5-5.1)
[2020-12-14] MEDS: SODIUM CHLORIDE 0.9% 1,000 ML IV SCH ×2 (12:25→22:25)
[2020-12-14] MEDS: cefTRIAXone 1,000 MG in SODIUM CHLORIDE 0.9% 100 ML IV SCH (17:08)
[2020-12-15] MEDS: INSULIN LISPRO 100 UNIT/ML SUBCUT SCH ×6 (01:03→21:02)
[2020-12-15] MEDS: INSULIN GLARGINE 100 UNIT/ML SUBCUT SCH (09:40)
[2020-12-15] MEDS: PANTOPRAZOLE 40 MG TABLET PO SCH (09:40)
[2020-12-15] MEDS: DOCUSATE SODIUM 100 MG CAPSULE PO SCH ×2 (09:40→21:01)
[2020-12-15] MEDS ORDERED: traMADol 50 MG TABLET PO PRN (14:08)
[2020-12-15] MEDS: SODIUM CHLORIDE 0.9% 1,000 ML IV SCH ×2 (17:48→17:59)
[2020-12-15] MEDS: cefTRIAXone 1,000 MG in SODIUM CHLORIDE 0.9% 100 ML IV SCH (17:48)
[2020-12-16] MEDS: INSULIN LISPRO 100 UNIT/ML SUBCUT SCH ×6 (00:32→21:48)
[2020-12-16] MEDS: ACETAMINOPHEN 325 MG TABLET PO PRN ×2 (01:28→21:48)
[2020-12-16] MEDS: SODIUM CHLORIDE 0.9% 1,000 ML IV SCH ×2 (05:04→16:55)
[2020-12-16 05:10] LABS: Basophils % 0.3 % (0.0-0.8); Eosinophils # 0.1 10*3/uL (0.0-0.87); Eosinophils % 0.9 % (0.00-10.9); Hematocrit 31.4 VOL% (42.0-52.0); Hemoglobin 10.7 GM/DL (14.0-18.0); Immature Granulocytes % 0.3 %; Immature Granulocytes Absolute 0.02 #; Lymphocytes # 2.7 10*3/uL (1.4-4.0); Lymphocytes % 38.7 % (21.2-54.2); Mean Corpuscular HGB Conc 34.1 GM/DL (32-36); Mean Corpuscular Volume 79.7 FL (87-102); Mean Platelet Volume 9.9 FL (9.6-12.0); Monocytes % 7.3 % (1.7-12.7); Neutrophils % 52.5 % (38.7-73.9); Platelet Count 243 T/CUMM (130-400); Red Blood Count 3.94 MC/CUMM (3.8-5.5); Red Cell Distribution Width 14.2 % (9.3-17.3)
[2020-12-16 05:47] LABS: Calcium 7.8 MG/DL (8.5-10.1); Osmolality,Calculated 285.1 MOS/KG (273-304); Potassium 3.5 MMOL/L (3.5-5.1)
[2020-12-16] MEDS: PANTOPRAZOLE 40 MG TABLET PO SCH (10:02)
[2020-12-16] MEDS: DOCUSATE SODIUM 100 MG CAPSULE PO SCH ×2 (10:02→21:49)
[2020-12-16] MEDS: INSULIN GLARGINE 100 UNIT/ML SUBCUT SCH (10:02)
[2020-12-16] MEDS: cefTRIAXone 1,000 MG in SODIUM CHLORIDE 0.9% 100 ML IV SCH (16:56)
[2020-12-16] MEDS: ATORVASTATIN 40 MG TABLET PO SCH (21:49)
[2020-12-16] MEDS: METOPROLOL TARTRATE 25 MG TABLET PO SCH (21:49)
[2020-12-17] MEDS: INSULIN LISPRO 100 UNIT/ML SUBCUT SCH ×6 (01:49→21:16)
[2020-12-17] MEDS: SODIUM CHLORIDE 0.9% 1,000 ML IV SCH ×2 (03:02→21:49)
[2020-12-17 06:06] LABS: Basophils % 0.3 % (0.0-0.8); Eosinophils # 0.1 10*3/uL (0.0-0.87); Eosinophils % 1.2 % (0.00-10.9); Hematocrit 30.8 VOL% (42.0-52.0); Hemoglobin 10.1 GM/DL (14.0-18.0); Immature Granulocytes % 0.3 %; Immature Granulocytes Absolute 0.02 #; Lymphocytes # 2.7 10*3/uL (1.4-4.0); Lymphocytes % 44.4 % (21.2-54.2); Mean Corpuscular HGB Conc 32.8 GM/DL (32-36); Mean Corpuscular Volume 81.3 FL (87-102); Mean Platelet Volume 10.1 FL (9.6-12.0); Monocytes % 7.4 % (1.7-12.7); Neutrophils % 46.4 % (38.7-73.9); Platelet Count 217 T/CUMM (130-400); Red Blood Count 3.79 MC/CUMM (3.8-5.5); Red Cell Distribution Width 14.3 % (9.3-17.3); White Blood Count 6.1 T/CUMM (4-12)
[2020-12-17 06:33] LABS: Calcium 7.5 MG/DL (8.5-10.1); Osmolality,Calculated 283.1 MOS/KG (273-304); Potassium 3.3 MMOL/L (3.5-5.1)
[2020-12-17] MEDS: DOCUSATE SODIUM 100 MG CAPSULE PO SCH ×2 (09:11→21:16)
[2020-12-17] MEDS: INSULIN GLARGINE 100 UNIT/ML SUBCUT SCH (09:11)
[2020-12-17] MEDS: METOPROLOL TARTRATE 25 MG TABLET PO SCH ×2 (09:12→21:16)
[2020-12-17] MEDS: PANTOPRAZOLE 40 MG TABLET PO SCH (09:12)
[2020-12-17] MEDS ORDERED: ALBUTEROL 2.5 MG/3 ML NEB RESP TX PRN (13:05)
[2020-12-17] MEDS: sitaGLIPtin 100 MG TABLET PO SCH (13:58)
[2020-12-17] MEDS: metFORMIN 500 MG TABLET PO SCH (17:45)
[2020-12-17] MEDS: cefTRIAXone 1,000 MG in SODIUM CHLORIDE 0.9% 100 ML IV SCH (17:45)
[2020-12-17] MEDS: cilostazoL 100 MG TABLET PO SCH (18:39)
[2020-12-17] MEDS: ATORVASTATIN 40 MG TABLET PO SCH (21:16)
[2020-12-18] MEDS: INSULIN LISPRO 100 UNIT/ML SUBCUT SCH ×6 (02:32→20:27)
[2020-12-18] MEDS: POTASSIUM CHLORIDE 20 MEQ TABLET PO SCH (08:30)
[2020-12-18] MEDS: METOPROLOL TARTRATE 25 MG TABLET PO SCH ×2 (08:31→20:27)
[2020-12-18] MEDS: sitaGLIPtin 100 MG TABLET PO SCH (08:31)
[2020-12-18] MEDS: PANTOPRAZOLE 40 MG TABLET PO SCH (08:31)
[2020-12-18] MEDS: cilostazoL 100 MG TABLET PO SCH ×2 (08:31→19:22)
[2020-12-18] MEDS: DOCUSATE SODIUM 100 MG CAPSULE PO SCH ×2 (08:31→20:26)
[2020-12-18] MEDS: metFORMIN 500 MG TABLET PO SCH ×2 (09:45→17:50)
[2020-12-18] MEDS: INSULIN GLARGINE 100 UNIT/ML SUBCUT SCH (13:00)
[2020-12-18] MEDS: cefTRIAXone 1,000 MG in SODIUM CHLORIDE 0.9% 100 ML IV SCH (17:50)
[2020-12-18] MEDS: ATORVASTATIN 40 MG TABLET PO SCH (20:27)
[2020-12-19] MEDS: ACETAMINOPHEN 325 MG TABLET PO PRN (01:22)
[2020-12-19] MEDS: INSULIN LISPRO 100 UNIT/ML SUBCUT SCH ×4 (01:49→13:49)
[2020-12-19] MEDS: cilostazoL 100 MG TABLET PO SCH (09:24)
[2020-12-19] MEDS: METOPROLOL TARTRATE 25 MG TABLET PO SCH (09:24)
[2020-12-19] MEDS: sitaGLIPtin 100 MG TABLET PO SCH (09:25)
[2020-12-19] MEDS: INSULIN GLARGINE 100 UNIT/ML SUBCUT SCH (09:25)
[2020-12-19] MEDS: metFORMIN 500 MG TABLET PO SCH (09:25)
[2020-12-19] MEDS: POTASSIUM CHLORIDE 20 MEQ TABLET PO SCH (09:25)
[2020-12-19] MEDS: DOCUSATE SODIUM 100 MG CAPSULE PO SCH (09:25)
[2020-12-19] MEDS: PANTOPRAZOLE 40 MG TABLET PO SCH (09:28)
[2020-12-19 12:14] VITALS: BP 136/63
== END 2020-12-19 14:55 | disposition home health service (06) | DRG 637 ==
LOC: EDUNIT# → N.ED 10:10 → N.EDINP 11:16 → N.4E 16:07
PROVIDERS: ADMIT Family Medicine; ATTEND Family Medicine

== ENCOUNTER 2021-03-04 23:46 | Inpatient (IN) ==
[2021-03-05 00:56] LABS: Basophils % 0.2 % (0.0-0.8); Hematocrit 40.6 VOL% (42.0-52.0); Hemoglobin 12.4 GM/DL (14.0-18.0); Immature Granulocytes % 0.6 %; Lymphocytes # 0.7 10*3/uL (1.4-4.0); Mean Corpuscular HGB Conc 30.5 GM/DL (32-36); Mean Corpuscular Volume 86.9 FL (87-102); Mean Platelet Volume 10.9 FL (9.6-12.0); Monocytes % 4.7 % (1.7-12.7); Neutrophils % 90.5 % (38.7-73.9); Platelet Count 355 T/CUMM (130-400); Red Blood Count 4.67 MC/CUMM (3.8-5.5); Red Cell Distribution Width 15.9 % (9.3-17.3); White Blood Count 16.7 T/CUMM (4-12)
[2021-03-05 01:20] LABS: Albumin 4.1 G/DL (3.4-5.0); Bilirubin,Total 0.5 MG/DL (0.20-1.00); Calcium 9.9 MG/DL (8.5-10.1); Osmolality,Calculated 308.8 MOS/KG (273-304); Total Protein 6.8 G/DL (6.4-8.2)
[2021-03-05 01:23] LABS: Potassium 6.1 MMOL/L (3.5-5.1)
[2021-03-05] MEDS ORDERED: INSULIN REGULAR 100 UNIT/ML IV STA (01:23)
[2021-03-05] MEDS ORDERED: SODIUM CHLORIDE 0.9% 1,000 ML IV STA (01:23)
[2021-03-05 01:29] LABS: Band Neutrophils 1 % (0-10); Lymphocytes 3 % (20-55); Segmented Neutrophils 91 % (50-85)
[2021-03-05 01:30] LABS: Anisocytosis 1+; Macrocytosis 1+; Platelet Estimate Normal
[2021-03-05 01:31] LABS: Total Cells Counted 100
[2021-03-05 01:36] LABS: Reactive Lymphocytes 1+
[2021-03-05 01:42] LABS: ABG Base Excess -24.6 MMOL/L (-2.5-2.5); ABG HCO3 7.7 MMOL/L (20-26); ABG Oxygen Saturation 97.6 % (95-100); Allen Test Positive; Pt O2 Delivery Device Room Air
[2021-03-05 01:45] LABS: ABG PCO2 13.1 MM HG (35-48)
[2021-03-05] MEDS ORDERED: INSULIN REGULAR DRIP 100 ML IV PRN (01:45)
[2021-03-05 02:30] LABS: Bacteria,Urine Occasional /HPF (Few); Bilirubin,Urine Negative (Negative); Blood, Urine Small mg/dL (Negative); Glucose,Urine (UA) >=500 mg/dL (Negative); Granular Casts,Urine 13 /LPF (0-1); Hyaline Casts,Urine 3 /LPF (0-3); Ketones,Urine 80 mg/dL (Negative); Mucus,Urine Occasional /LPF (Occasional); Nitrite,Urine Negative (Negative); Protein,Urine 30 MG/DL; RBC,Urine <1 /HPF (0-4); Urine Appearance Slightly Hazy (Clear); Urine Color Yellow (Yellow); Urine Specific Gravity 1.021 (1.001-1.035); Urine Urobilinogen < 2.0 EU/DL (0.2-1.0)
[2021-03-05] MEDS ORDERED: LACTATED RINGERS 2,000 ML IV ONE (03:17)
[2021-03-05] MEDS ORDERED: ALBUTEROL 2.5 MG/3 ML NEB RESP TX PRN (03:19)
[2021-03-05] MEDS ORDERED: ONDANSETRON 4 MG/2 ML VIAL IV PRN (03:19)
[2021-03-05] MEDS ORDERED: INSULIN GLARGINE 100 UNIT/ML SUBCUT STA (03:24)
[2021-03-05 03:48] LABS: Potassium 5.1 MMOL/L (3.5-5.1)
[2021-03-05] MEDS ORDERED: NIFEdipine 10 MG CAPSULE PO PRN (03:48)
[2021-03-05] MEDS: METOPROLOL TARTRATE 25 MG TABLET PO SCH ×4 (04:28→22:26)
[2021-03-05] MEDS: DEXTROSE 5% NACL 0.45% 1,000 ML IV SCH ×3 (07:57→19:30)
[2021-03-05] MEDS ORDERED: PANTOPRAZOLE 40 MG VIAL IV SCH (09:00)
[2021-03-05] MEDS: ENOXAPARIN 40 MG/0.4 ML SYRINGE SUBCUT SCH (09:15)
[2021-03-05 09:54] LABS: Osmolality,Calculated 290.4 MOS/KG (273-304); Potassium 4.1 MMOL/L (3.5-5.1)
[2021-03-05] MEDS ORDERED: POTASSIUM CHLORIDE RIDER 10 MEQ/100 ML PREMIX IV PRN (11:04)
[2021-03-05] MEDS ORDERED: MAGNESIUM SULF RIDER 2 GM/50 ML PREMIX IV PRN (11:04)
[2021-03-05] MEDS ORDERED: MAGNESIUM SULF RIDER 4 GM/100 ML PREMIX IV PRN (11:04)
[2021-03-05] MEDS ORDERED: SODIUM PHOSPHATE INJ 14.3 MMOL in SODIUM CHLORIDE 0.9% 250 ML IV PRN (11:06)
[2021-03-05] MEDS ORDERED: SODIUM BICARB INJ 100 MEQ in STERILE WATER INJ 400 ML IV PRN (11:06)
[2021-03-05] MEDS ORDERED: DEXTROSE 50% 25 GM/50 ML VIAL IV PRN ×2 (11:06)
[2021-03-05 12:47] LABS: Amorphous Crystals,Urine Few /HPF (Few); Bacteria,Urine Occasional /HPF (Few); Bilirubin,Urine Negative (Negative); Blood, Urine Small mg/dL (Negative); Glucose,Urine (UA) >=500 mg/dL (Negative); Hyaline Casts,Urine 3 /LPF (0-3); Ketones,Urine 80 mg/dL (Negative); Mucus,Urine Occasional /LPF (Occasional); Nitrite,Urine Negative (Negative); Protein,Urine 30 MG/DL; RBC,Urine 2 /HPF (0-4); Urine Appearance Slightly Hazy (Clear); Urine Color Yellow (Yellow); Urine Specific Gravity 1.022 (1.001-1.035); Urine Urobilinogen < 2.0 EU/DL (0.2-1.0)
[2021-03-05 16:16] LABS: Calcium 8.9 MG/DL (8.5-10.1); Osmolality,Calculated 282.3 MOS/KG (273-304); Potassium 3.9 MMOL/L (3.5-5.1)
[2021-03-05] MEDS ORDERED: GLUCAGON 1 MG VIAL IM PRN (17:29)
[2021-03-05] MEDS ORDERED: ERGOCALCIFEROL 50,000 UNIT CAPSULE PO SCH (17:30)
[2021-03-05] MEDS: cilostazoL 100 MG TABLET PO SCH (18:19)
[2021-03-05] MEDS: INSULIN LISPRO 100 UNIT/ML SUBCUT SCH (20:26)
[2021-03-05] MEDS: INSULIN GLARGINE 100 UNIT/ML SUBCUT SCH (20:27)
[2021-03-05 21:41] LABS: Calcium 8.2 MG/DL (8.5-10.1); Osmolality,Calculated 285.7 MOS/KG (273-304); Potassium 3.9 MMOL/L (3.5-5.1)
[2021-03-05] MEDS: ATORVASTATIN 40 MG TABLET PO SCH (22:10)
[2021-03-05] MEDS: SODIUM CHLORIDE 0.45% 1,000 ML IV SCH (22:20)
[2021-03-06] MEDS ORDERED: SODIUM CHLORIDE 0.45% 1,000 ML IV SCH (04:30)
[2021-03-06 04:35] LABS: Basophils % 0.1 % (0.0-0.8); Eosinophils % 0.4 % (0.00-10.9); Hematocrit 32.8 VOL% (42.0-52.0); Hemoglobin 10.8 GM/DL (14.0-18.0); Immature Granulocytes % 0.2 %; Immature Granulocytes Absolute 0.02 #; Lymphocytes # 1.6 10*3/uL (1.4-4.0); Lymphocytes % 17.5 % (21.2-54.2); Mean Corpuscular HGB Conc 32.9 GM/DL (32-36); Mean Platelet Volume 9.9 FL (9.6-12.0); Monocytes % 6.5 % (1.7-12.7); Neutrophils % 75.3 % (38.7-73.9); Platelet Count 255 T/CUMM (130-400); Red Cell Distribution Width 15.8 % (9.3-17.3); White Blood Count 9.1 T/CUMM (4-12)
[2021-03-06] MEDS: SODIUM CHLORIDE 0.45% 1,000 ML IV SCH ×2 (07:06→15:37)
[2021-03-06 07:07] LABS: Calcium 8.2 MG/DL (8.5-10.1); Osmolality,Calculated 280.7 MOS/KG (273-304); Potassium 3.7 MMOL/L (3.5-5.1)
[2021-03-06] MEDS: INSULIN LISPRO 100 UNIT/ML SUBCUT SCH ×4 (08:01→23:02)
[2021-03-06] MEDS: CYANOCOBALAMIN 500 MCG TABLET PO SCH (08:02)
[2021-03-06] MEDS: ENOXAPARIN 40 MG/0.4 ML SYRINGE SUBCUT SCH (08:02)
[2021-03-06] MEDS: PANTOPRAZOLE 40 MG TABLET PO SCH (08:02)
[2021-03-06] MEDS: cilostazoL 100 MG TABLET PO SCH ×2 (08:02→17:52)
[2021-03-06] MEDS: METOPROLOL TARTRATE 25 MG TABLET PO SCH ×2 (08:10→21:08)
[2021-03-06] MEDS ORDERED: POTASSIUM PHOSPHATE 30 MMOL in SODIUM CHLORIDE 0.9% 250 ML IV ONE (09:00)
[2021-03-06] MEDS: ATORVASTATIN 40 MG TABLET PO SCH (21:08)
[2021-03-06] MEDS: INSULIN GLARGINE 100 UNIT/ML SUBCUT SCH (23:02)
[2021-03-07 05:00] LABS: Eosinophils % 0.6 % (0.00-10.9); Hemoglobin 10.3 GM/DL (14.0-18.0); Immature Granulocytes % 0.3 %; Immature Granulocytes Absolute 0.02 #; Lymphocytes # 1.7 10*3/uL (1.4-4.0); Lymphocytes % 25.1 % (21.2-54.2); Mean Corpuscular HGB Conc 33.2 GM/DL (32-36); Mean Corpuscular Volume 79.3 FL (87-102); Mean Platelet Volume 10.4 FL (9.6-12.0); Monocytes % 8.5 % (1.7-12.7); Neutrophils % 65.5 % (38.7-73.9); Platelet Count 235 T/CUMM (130-400); Red Blood Count 3.91 MC/CUMM (3.8-5.5); Red Cell Distribution Width 15.9 % (9.3-17.3); White Blood Count 6.6 T/CUMM (4-12)
[2021-03-07 05:27] LABS: Osmolality,Calculated 287.4 MOS/KG (273-304); Potassium 3.2 MMOL/L (3.5-5.1)
[2021-03-07] MEDS: SODIUM CHLORIDE 0.45% 1,000 ML IV SCH ×3 (06:32→18:33)
[2021-03-07] MEDS: INSULIN LISPRO 100 UNIT/ML SUBCUT SCH ×4 (08:44→21:54)
[2021-03-07] MEDS: CYANOCOBALAMIN 500 MCG TABLET PO SCH (09:04)
[2021-03-07] MEDS: PANTOPRAZOLE 40 MG TABLET PO SCH (09:05)
[2021-03-07] MEDS: cilostazoL 100 MG TABLET PO SCH ×2 (09:05→20:16)
[2021-03-07] MEDS: METOPROLOL TARTRATE 25 MG TABLET PO SCH ×2 (09:07→21:53)
[2021-03-07] MEDS: ENOXAPARIN 40 MG/0.4 ML SYRINGE SUBCUT SCH (09:08)
[2021-03-07] MEDS: sitaGLIPtin 100 MG TABLET PO SCH (13:02)
[2021-03-07] MEDS: metFORMIN 500 MG TABLET PO SCH (17:20)
[2021-03-07] MEDS: ATORVASTATIN 40 MG TABLET PO SCH (21:53)
[2021-03-07] MEDS: INSULIN GLARGINE 100 UNIT/ML SUBCUT SCH ×2 (21:54→21:55)
[2021-03-08] MEDS: SODIUM CHLORIDE 0.45% 1,000 ML IV SCH ×2 (01:19→08:16)
[2021-03-08] MEDS: cilostazoL 100 MG TABLET PO SCH ×2 (08:16→17:10)
[2021-03-08] MEDS: ENOXAPARIN 40 MG/0.4 ML SYRINGE SUBCUT SCH (08:16)
[2021-03-08] MEDS: INSULIN LISPRO 100 UNIT/ML SUBCUT SCH ×4 (08:16→21:19)
[2021-03-08] MEDS: METOPROLOL TARTRATE 25 MG TABLET PO SCH ×2 (08:17→21:18)
[2021-03-08] MEDS: metFORMIN 500 MG TABLET PO SCH ×2 (08:17→17:10)
[2021-03-08] MEDS: CYANOCOBALAMIN 500 MCG TABLET PO SCH (08:17)
[2021-03-08] MEDS: PANTOPRAZOLE 40 MG TABLET PO SCH (08:17)
[2021-03-08] MEDS: sitaGLIPtin 100 MG TABLET PO SCH (08:17)
[2021-03-08] MEDS ORDERED: POTASSIUM CHLORIDE INJ 20 MEQ in SODIUM CHLORIDE 0.45% 1,000 ML IV SCH (12:02)
[2021-03-08] MEDS: SODIUM CHLOR 0.45% KCL 20 MEQ 20 MEQ/1,000 ML BAG IV SCH ×2 (13:13→21:26)
[2021-03-08] MEDS: ATORVASTATIN 40 MG TABLET PO SCH (21:18)
[2021-03-08] MEDS: INSULIN GLARGINE 100 UNIT/ML SUBCUT SCH ×2 (21:19)
[2021-03-09 05:33] LABS: Basophils % 0.4 % (0.0-0.8); Eosinophils # 0.1 10*3/uL (0.0-0.87); Eosinophils % 1.6 % (0.00-10.9); Hematocrit 30.8 VOL% (42.0-52.0); Hemoglobin 10.2 GM/DL (14.0-18.0); Immature Granulocytes % 0.6 %; Immature Granulocytes Absolute 0.03 #; Lymphocytes # 1.9 10*3/uL (1.4-4.0); Lymphocytes % 38.2 % (21.2-54.2); Mean Corpuscular HGB Conc 33.1 GM/DL (32-36); Mean Corpuscular Volume 80.2 FL (87-102); Neutrophils % 51.2 % (38.7-73.9); Platelet Count 241 T/CUMM (130-400); Red Blood Count 3.84 MC/CUMM (3.8-5.5); Red Cell Distribution Width 15.9 % (9.3-17.3)
[2021-03-09 06:07] LABS: Albumin 2.5 G/DL (3.4-5.0); Bilirubin,Total 0.4 MG/DL (0.20-1.00); Calcium 7.9 MG/DL (8.5-10.1); Osmolality,Calculated 284.3 MOS/KG (273-304); Potassium 3.5 MMOL/L (3.5-5.1)
[2021-03-09 06:32] LABS: Risk Ratio 2.15; Thyroid Stimulating Hormone 0.706 uIU/ml (0.358-3.74); VLDL Cholesterol 15.6 MG/DL
[2021-03-09] MEDS: SODIUM CHLOR 0.45% KCL 20 MEQ 20 MEQ/1,000 ML BAG IV SCH ×2 (06:56→17:24)
[2021-03-09] MEDS: INSULIN LISPRO 100 UNIT/ML SUBCUT SCH ×4 (07:53→21:05)
[2021-03-09] MEDS: ENOXAPARIN 40 MG/0.4 ML SYRINGE SUBCUT SCH (08:27)
[2021-03-09] MEDS: CYANOCOBALAMIN 500 MCG TABLET PO SCH (08:28)
[2021-03-09] MEDS: metFORMIN 500 MG TABLET PO SCH ×2 (08:28→17:23)
[2021-03-09] MEDS: cilostazoL 100 MG TABLET PO SCH ×2 (08:28→17:23)
[2021-03-09] MEDS: METOPROLOL TARTRATE 25 MG TABLET PO SCH ×2 (08:28→20:59)
[2021-03-09] MEDS: sitaGLIPtin 100 MG TABLET PO SCH (08:28)
[2021-03-09] MEDS: PANTOPRAZOLE 40 MG TABLET PO SCH (08:28)
[2021-03-09] MEDS: ATORVASTATIN 40 MG TABLET PO SCH (20:59)
[2021-03-09] MEDS: INSULIN GLARGINE 100 UNIT/ML SUBCUT SCH ×2 (21:05→21:06)
[2021-03-10] MEDS: SODIUM CHLOR 0.45% KCL 20 MEQ 20 MEQ/1,000 ML BAG IV SCH ×3 (04:12→23:01)
[2021-03-10 05:41] LABS: Basophils % 0.2 % (0.0-0.8); Eosinophils # 0.1 10*3/uL (0.0-0.87); Eosinophils % 1.5 % (0.00-10.9); Hematocrit 33.7 VOL% (42.0-52.0); Hemoglobin 10.8 GM/DL (14.0-18.0); Immature Granulocytes % 0.3 %; Immature Granulocytes Absolute 0.02 #; Lymphocytes # 2.5 10*3/uL (1.4-4.0); Lymphocytes % 42.4 % (21.2-54.2); Mean Corpuscular Volume 81.4 FL (87-102); Mean Platelet Volume 10.6 FL (9.6-12.0); Monocytes % 6.9 % (1.7-12.7); Neutrophils % 48.7 % (38.7-73.9); Platelet Count 294 T/CUMM (130-400); Red Blood Count 4.14 MC/CUMM (3.8-5.5); Red Cell Distribution Width 15.9 % (9.3-17.3); White Blood Count 5.9 T/CUMM (4-12)
[2021-03-10 06:13] LABS: Calcium 8.8 MG/DL (8.5-10.1); Osmolality,Calculated 273.7 MOS/KG (273-304); Potassium 3.9 MMOL/L (3.5-5.1)
[2021-03-10] MEDS: INSULIN LISPRO 100 UNIT/ML SUBCUT SCH ×4 (08:26→21:35)
[2021-03-10] MEDS: metFORMIN 500 MG TABLET PO SCH ×2 (08:54→17:07)
[2021-03-10] MEDS: CYANOCOBALAMIN 500 MCG TABLET PO SCH (08:54)
[2021-03-10] MEDS: PANTOPRAZOLE 40 MG TABLET PO SCH (08:55)
[2021-03-10] MEDS: METOPROLOL TARTRATE 25 MG TABLET PO SCH ×2 (08:55→21:14)
[2021-03-10] MEDS: ENOXAPARIN 40 MG/0.4 ML SYRINGE SUBCUT SCH (08:55)
[2021-03-10] MEDS: cilostazoL 100 MG TABLET PO SCH ×2 (08:55→17:07)
[2021-03-10] MEDS: sitaGLIPtin 100 MG TABLET PO SCH (08:55)
[2021-03-10] MEDS: ATORVASTATIN 40 MG TABLET PO SCH (21:15)
[2021-03-10] MEDS: INSULIN GLARGINE 100 UNIT/ML SUBCUT SCH ×2 (21:15→21:34)
[2021-03-11 04:20] LABS: Basophils % 0.4 % (0.0-0.8); Eosinophils # 0.1 10*3/uL (0.0-0.87); Eosinophils % 1.9 % (0.00-10.9); Hematocrit 30.3 VOL% (42.0-52.0); Hemoglobin 9.7 GM/DL (14.0-18.0); Immature Granulocytes % 0.4 %; Immature Granulocytes Absolute 0.02 #; Lymphocytes # 2.2 10*3/uL (1.4-4.0); Lymphocytes % 41.9 % (21.2-54.2); Mean Corpuscular Volume 81.5 FL (87-102); Mean Platelet Volume 10.6 FL (9.6-12.0); Monocytes % 9.7 % (1.7-12.7); Neutrophils % 45.7 % (38.7-73.9); Platelet Count 278 T/CUMM (130-400); Red Blood Count 3.72 MC/CUMM (3.8-5.5); Red Cell Distribution Width 15.8 % (9.3-17.3); White Blood Count 5.2 T/CUMM (4-12)
[2021-03-11 04:39] LABS: Calcium 8.3 MG/DL (8.5-10.1); Osmolality,Calculated 281.4 MOS/KG (273-304)
[2021-03-11] MEDS ORDERED: TUBERCULIN SKIN TEST 0.1 ML SYRINGE INTRADERM ONE (08:38)
[2021-03-11] MEDS: metFORMIN 500 MG TABLET PO SCH ×2 (09:09→16:32)
[2021-03-11] MEDS: sitaGLIPtin 100 MG TABLET PO SCH (09:10)
[2021-03-11] MEDS: cilostazoL 100 MG TABLET PO SCH ×2 (09:10→18:15)
[2021-03-11] MEDS: PANTOPRAZOLE 40 MG TABLET PO SCH (09:10)
[2021-03-11] MEDS: METOPROLOL TARTRATE 25 MG TABLET PO SCH ×2 (09:10→21:23)
[2021-03-11] MEDS: CYANOCOBALAMIN 500 MCG TABLET PO SCH (09:10)
[2021-03-11] MEDS: ENOXAPARIN 40 MG/0.4 ML SYRINGE SUBCUT SCH (09:11)
[2021-03-11] MEDS: INSULIN LISPRO 100 UNIT/ML SUBCUT SCH ×4 (09:11→21:24)
[2021-03-11] MEDS: SODIUM CHLOR 0.45% KCL 20 MEQ 20 MEQ/1,000 ML BAG IV SCH ×2 (09:12→20:14)
[2021-03-11] MEDS: ATORVASTATIN 40 MG TABLET PO SCH (21:23)
[2021-03-11] MEDS: INSULIN GLARGINE 100 UNIT/ML SUBCUT SCH (21:24)
[2021-03-12] MEDS: SODIUM CHLOR 0.45% KCL 20 MEQ 20 MEQ/1,000 ML BAG IV SCH (06:37)
[2021-03-12] MEDS: INSULIN LISPRO 100 UNIT/ML SUBCUT SCH ×2 (08:58→10:43)
[2021-03-12] MEDS: cilostazoL 100 MG TABLET PO SCH (09:02)
[2021-03-12] MEDS: CYANOCOBALAMIN 500 MCG TABLET PO SCH (09:02)
[2021-03-12] MEDS: metFORMIN 500 MG TABLET PO SCH (09:03)
[2021-03-12] MEDS: METOPROLOL TARTRATE 25 MG TABLET PO SCH (09:03)
[2021-03-12] MEDS: sitaGLIPtin 100 MG TABLET PO SCH (09:03)
[2021-03-12] MEDS: ENOXAPARIN 40 MG/0.4 ML SYRINGE SUBCUT SCH (09:03)
[2021-03-12] MEDS: PANTOPRAZOLE 40 MG TABLET PO SCH (09:03)
[2021-03-12 11:20] VITALS: BP 132/73
== END 2021-03-12 16:20 | DRG 638 ==
LOC: EDBD → EDUNIT# → N.ED 23:46 → SUATTDRO 03-05 02:26 → N.EDINP 03-05 02:26 → N.ICU 03-05 15:13 → N.3E 03-06 16:35
PROVIDERS: ADMIT Family Medicine; ATTEND Family Medicine